=== PATIENT | male | born 1960 | race Caucasian/White ===

== ENCOUNTER 2019-08-17 19:48 | Emergency (ER) | payer MEDICARE, MEDICAID, SELFPAY ==
[2019-08-17 20:02] VITALS: BP 121/76; PULSE 64; RESP 18; TEMP 36.9; O2SAT 95; BMI 24.3
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
[2019-08-17 21:07] VITALS: RESP 18
[2019-08-17] MEDS: oxyCODONE-APAP 5-325 mg Tablet 2 TAB PO (21:07)
[2019-08-17 21:21] VITALS: BP 127/74; PULSE 76; RESP 18
== END 2019-08-17 21:22 | disposition home or self-care (01) ==
PROVIDERS: Emergency Provider Emergency Medicine
DX: S50.11XA Contusion of right forearm, initial encounter (principal); F17.210 Nicotine dependence, cigarettes, uncomplicated; W55.22XA Struck by cow, initial encounter
CPT/HCPCS: 12345; 73090; 99281; 99283

== ENCOUNTER 2020-08-08 19:11 | Emergency (ER) | payer MEDICARE, MEDICAID, SELFPAY ==
[2020-08-08 19:34] VITALS: BP 130/68; PULSE 80; RESP 18; TEMP 36.3; O2SAT 98; BMI 25.0
--- NOTE | 2020-08-08 19:37 | W.ED.ABDPA2 ---
HPI - Abdominal Pain General: Chief Complaint: Abdominal Pain Stated Complaint: ABD PAIN Time Seen by Provider: 08/08/20 19:36 History of Present Illness: HPI narrative: Patient comes in with right upper quadrant abdominal pain. Patient reports tender to palpation. Patient states that he had a similar discomfort about 1 week ago that resolved on its own. Patient reports nothing makes pain better movement makes it worse. Patient does have a history of chronic back pain. Patient reports no routine medications. Patient denies any heart or lung disease. Onset (ago): hour(s) Pain Consistency: constant Location: RUQ Severity: moderate Quality: stabbing Radiation: none Migration to: no migration Exacerbating factors: movement Relieving factors: nothing Associated Symptoms: Reports no associated symptoms Review of Systems General: Reports: 10 or more systems reviewed and unremarkable except in HPI and below GI: Reports: abdominal pain PFSH ED PFSH: Social History Smoking and tobacco status: current every day smoker Physical Exam Const: COMMON NORMALS: no acute distress and patient oriented x3 GENERAL APPEARANCE: cooperative HENMT: COMMON NORMALS: normocephalic and Normal external nose present HEAD & SCALP: normal to inspection and normocephalic NOSE: Normal external nose present MOUTH: Normal oral and palatal mucosa present Eye: GENERAL EYE: appearance normal, both eyes and all related structures Neck/C-Spine: COMMON NORMALS: full ROM Lymph: LYMPHATIC: no lymphadenopathy noted Chest: COMMONS NORMALS: normal inspection of the chest Resp: COMMON NORMALS: normal respiratory effort EFFORT & INSPECTION: Yes able to speak in complete sentences Cardio: COMMON NORMALS: regular rate and regular rhythm RATE: regular rate RHYTHM: regular rhythm GI: COMMON NORMALS: Soft to palpation INSPECTION: Yes normal to inspection AUSCULTATION: Yes normoactive bowel sounds PALPATION: Yes Soft to palpation and Yes Tenderness to palpation present (GI) Details: RUQ : COMMON NORMALS: Yes no CVA tenderness BLADDER/KIDNEY EXAM: Yes no CVA tenderness Back/Pelvis: COMMON NORMALS: no CVA tenderness and thoracic and lumbar spine normal to inspection Extremity: COMMON NORMALS: normal to inspection Neuro: COMMON NORMALS: patient oriented x3 and moves all extremities Psych: COMMON NORMALS: mental status grossly normal and cooperative Skin: COMMON NORMALS: no rashes or lesions noted GENERAL SKIN EXAM: no rashes or lesions noted Course Vital Signs: Vital signs: Vital Signs Temperature 97.4 F L 08/08/20 19:34 Pulse Rate 80 08/08/20 19:34 Respiratory Rate 16 08/08/20 20:04 Blood Pressure 130/68 08/08/20 19:34 Pulse Oximetry 98 08/08/20 19:34 MDM - Abdominal Pain MDM Narrative: Medical decision making narrative: pt comes in for epigastric abd pain starting 2 hours prior to arrival. patient appears well but in moderate pain. Abd is tender to touch to right upper quadrant. vital signs normal. ddx includes gastritis, pancreatitis, gallbladder disease. lab unremarkable except mild bump in lipase at 70. Ct abd and pelvis no acute disease. reviewed exam with patient, much improved after morphine and ondansetron, recommend dicyclomine to treat bowel pain, and f/u with primary care for further treatment. Lab Data: Labs: Lab Results 08/08/20 08/08/20 Range/Units 20:03 20:03 WBC 7.2 (4.0-10.0) 10^3/ uL RBC 4.99 (4.1-5.3) 10^6/u L Hgb 15.2 (11.7-16.6) g/dL Hct 44.5 (42.0-52.0) % MCV 89.2 (80-94) fL MCH 30.5 (28.0-34.0) pg MCHC 34.2 (30.0-36.0) g/dL RDW 12.1 (12.1-15.1) % Plt Count 232 (130-400) 10^3/c mm MPV 8.4 (7.4-10.4) fL Neut % (Auto) 52.5 % Lymph % (Auto) 35.6 % [place] % (Auto) 8.0 % Eos % (Auto) 3.2 % Baso % (Auto) 0.6 % Neut # (Auto) 3.78 (1.8-7.7) 10^3/u L Lymph # (Auto) 2.6 (0.8-4.8) 10^3/u L [place] # (Auto) 0.6 (0.2-0.9) 10^3/u L Eos # (Auto) 0.2 (0.0-0.8) 10^3/u L Baso # (Auto) 0.0 (0.0-0.1) 10^3/u L Nucleated RBC % (a uto) 0 % Nucleated RBCs # 0.0 /100WBC Sodium 138 (136-145) mmol/L Potassium 3.5 (3.5-5.1) mmol/L Chloride 104 (98-107) mmol/L Carbon Dioxide 25 (22-29) mmol/L Anion Gap 12.5 (5-19) BUN 20 (6-20) mg/dL Creatinine 0.7 (0.7-1.2) mg/dL GFR Calculation 116.2 (90-130) mL/min Glucose 103 (65-115) mg/dL Calculated Osmolal ity 289 (285-295) mOsm/k g Calcium 8.3 L (8.5-10.5) mg/dL Total Bilirubin 0.4 (0.15-1.2) mg/dL AST 12 (0-40) U/L ALT 10 (0-41) U/L Alkaline Phosphata se 112 (40-130) IU/L Total Protein 6.0 L (6.6-8.7) g/dL Albumin 3.4 L (3.5-5.2) g/dL Globulin 2.6 (1.3-4.6) g/dL Lipase 74 H (13-60) U/L Discharge Plan Discharge Patient Disposition: Home Clinical Impression: Abdominal pain Qualifiers: Abdominal location: epigastric Qualified Code(s): R10.13 - Epigastric pain Condition: Stable Prescriptions: New dicyclomine 10 mg capsule 10 mg PO TID PRN (Reason: abdominal pain) Qty: 15 RF: 0 No Action ropinirole 0.25 mg tablet RF: 0 [place] 5-325 mg tablet 1 tab PO Q6H PRN (Reason: pain) Qty: 7 RF: 0 Discharge Orders: Discharge ED (Routine); Ordered 08/08/20 Ordered By: Isaak Frazier Referrals: [facility], [Primary Care Provider] - Discharge Diet: Advance as tolerated Discharge Activity: Increase activity as tolerated Patient Instructions: Abdominal Pain (ED), Opioid Safety Activity Restrictions/Additional Instructions: Drink plenty of water, activity as tolerated. Follow-up with primary care as needed. Start with clear liquid diet and increase to normal diet as tolerated. Return to ER as needed Stand Alone Forms: Work/School Release Coding Level of Care Code ED Space Systems Operations Craftsman for Chg Fwd Exam Comprehensive
--- NOTE | 2020-08-08 19:40 | CTR_ITS ---
PROCEDURE INFORMATION: Exam: CT Abdomen And Pelvis With Contrast Exam date and time: 08/08/2020 7:40 PM Age: 59 years old Clinical indication: Abdominal pain; Localized; Right upper quadrant (ruq); Prior surgery; Surgery date: 6+ months; Surgery type: Appy; Patient HX: C/O ruq abd pain x 1 week; Additional info: Ruq pain, nausea TECHNIQUE: Imaging protocol: Computed tomography of the abdomen and pelvis with contrast. Radiation optimization: All CT scans at this facility use at least one of these dose optimization techniques: automated exposure control; mA and/or kV adjustment per patient size (includes targeted exams where dose is matched to clinical indication); or iterative reconstruction. Contrast material: OMNI 300; Contrast volume: 95 ml; Contrast route: INTRAVENOUS (IV); COMPARISON: No relevant prior studies available. RADIATION DOSE METRICS: Total DLP (mGy-cm): 1235.74 FINDINGS: Lungs: Minimal patchy bibasilar atelectasis and emphysematous changes suspected. Liver: Indeterminate 12 mm hypodense lesion in the right hepatic lobe. Nonemergent MRI may be helpful further evaluation. Gallbladder and bile ducts: No calcified stones. No ductal dilation. Pancreas: No ductal dilation. Spleen: No splenomegaly. Adrenal glands: Normal. No mass. Kidneys and ureters: No hydronephrosis. Stomach and bowel: Colonic diverticulosis without findings of diverticulitis. No dilated bowel loops. No bowel obstruction. Appendix: Status post appendectomy. Intraperitoneal space: No free air. No significant fluid collection. Vasculature: Mild atherosclerotic changes of the aorta. No aneurysm. Lymph nodes: No enlarged lymph nodes. Urinary bladder: Unremarkable as visualized. Reproductive: Unremarkable as visualized. Bones/joints: Unremarkable. No acute fracture. Soft tissues: Unremarkable. CT/CT abdomen pelvis w con* [id number] IMPRESSION: 1. No acute findings. 2. Indeterminate 12 mm hypodense lesion in the right hepatic lobe. Nonemergent MRI may be helpful further evaluation. Radiation Dose CTDIVOL = (mGy): DLP = 1235.74 (mGy-cm)
[2020-08-08 20:04] VITALS: RESP 16
[2020-08-08] MEDS: ondansetron 2 mg/ML SDV 2 mL 4 MG IVP (20:04)
[2020-08-08] MEDS: sodium chloride 0.9% 1,000 ML 999 ML IV (20:04)
[2020-08-08] MEDS: morphine 4 mg/mL SDV 1 mL IVP (20:04)
[2020-08-08 20:10] LABS: Basophils % 0.6 %; Eosinophils # 0.2 10^3/uL (0.0-0.8); Eosinophils % 3.2 %; Hematocrit 44.5 % (42.0-52.0); Hemoglobin 15.2 g/dL (11.7-16.6); Lymphocytes # 2.6 10^3/uL (0.8-4.8); Lymphocytes % 35.6 %; Mean Corpuscular HGB Conc 34.2 g/dL (30.0-36.0); Mean Corpuscular Hemoglobin 30.5 pg (28.0-34.0); Mean Corpuscular Volume 89.2 fL (80-94); Mean Platelet Volume 8.4 fL (7.4-10.4); Monocytes # 0.6 10^3/uL (0.2-0.9); Neutrophils # 3.78 10^3/uL (1.8-7.7); Neutrophils % 52.5 %; Nucleated Red Blood Cells % 0 %; Platelet Count 232 10^3/cmm (130-400); Red Blood Count 4.99 10^6/uL (4.1-5.3); Red Cell Distribution Width 12.1 % (12.1-15.1); White Blood Count 7.2 10^3/uL (4.0-10.0)
[2020-08-08 20:28] LABS: Alanine Aminotransferase 10 U/L (0-41); Albumin Level 3.4 g/dL (3.5-5.2); Alkaline Phosphatase 112 IU/L (40-130); Anion Gap 12.5 (5-19); Aspartate Amino Transferase 12 U/L (0-40); Blood Urea Nitrogen 20 mg/dL (6-20); Calcium 8.3 mg/dL (8.5-10.5); Carbon Dioxide 25 mmol/L (22-29); Chloride 104 mmol/L (98-107); Creatinine Clr Calc Pharmacy 113.1204; Globulin 2.6 g/dL (1.3-4.6); Glomerular Filtration Rate 116.2 mL/min (90-130); Glucose 103 mg/dL (65-115); Lipase 74 U/L (13-60); Osmolality Calculated 289 mOsm/kg (285-295); Potassium 3.5 mmol/L (3.5-5.1); Sodium 138 mmol/L (136-145); Total Bilirubin 0.4 mg/dL (0.15-1.2)
[2020-08-08] MEDS: iohexol 300 mg/mL 100 mL Btl IV (20:59)
[2020-08-08 22:42] VITALS: PULSE 77; RESP 16; O2SAT 98
== END 2020-08-08 22:42 | disposition home or self-care (01) ==
PROVIDERS: Emergency Medicine; Emergency Provider Nurse Practitioner Family
DX: R10.13 Epigastric pain (principal); F17.210 Nicotine dependence, cigarettes, uncomplicated
CPT/HCPCS: 74177; 80053; 83690; 85025; 96361; 96374; 96375; 99283; J2270; J2405; J7030; Q9967

== ENCOUNTER 2022-05-04 22:53 | Emergency (ER) | payer MEDICARE, MEDICAID, SELFPAY ==
--- NOTE | 2022-05-04 22:54 | USR_ITS ---
PROCEDURE INFORMATION: Exam: US Abdomen, Limited; Right Upper Quadrant Exam date and time: 05/04/2022 11:05 PM Age: 61 years old Clinical indication: Abdominal pain; Acute; Patient HX: Ruq pain today TECHNIQUE: Imaging protocol: Real time ultrasound of the abdomen with image documentation. Limited exam focused on the right upper quadrant. COMPARISON: CT abdomen pelvis w con* [id number] 08/08/2020 8:55 PM FINDINGS: Liver: Right hepatic lobe 15 mm hyperechoic possible hemangioma, finding was previously seen on CT from 08/08/2020 for which an MRI was recommended. Gallbladder: Normal. No gallstones. There is no gallbladder wall thickening. Biliary ducts: Normal. No stones. No dilation. Pancreas: Visualized pancreas is unremarkable. Right kidney: Normal. No mass. No hydronephrosis. US/US gall bladder [id number] IMPRESSION: 1. Negative for cholelithiasis or cholecystitis. 2. Right hepatic lobe 15 mm hyperechoic possible hemangioma, finding was previously seen on CT from 08/08/2020 for which an MRI was recommended.
[2022-05-04 22:58] VITALS: BP 143/101; PULSE 96; RESP 20; TEMP 36.7; O2SAT 98; BMI 27.6
--- NOTE | 2022-05-04 23:57 | ED_ITS ---
HPI - Abdominal Pain General: Chief Complaint: Abdominal Pain Stated Complaint: RUQ abd pain Time Seen by Provider: 05/04/22 22:55 Source: patient Mode of arrival: ambulatory Limitations: no limitations History of Present Illness: 61-year-old male states he has had intermittent abdominal pain for years is in the right upper quadrant he states that last night he is having severe pain is 8 out of 10 he states site is improved to 2 out of 10 but states he still had some pain he is currently incarcerated he is here with the Jell-O. He denies any vomiting denies any fever denies any worsening proving factors. Associated Symptoms: Denies chills, dysuria and fever(s) Review of Systems Const: Denies: fever(s), chills, body aches or change in appetite Eyes: Denies: blurry vision or eye discomfort ENMT: Denies: throat pain or dental pain Card: Denies: chest pain Resp: Denies: dyspnea GI: Reports: abdominal pain : Denies: dysuria Musc: Denies: neck pain or back pain Skin/Breast: Denies: rash Neuro: Denies: headache(s) Psych: Denies: depression [place]/Lymph: Denies: easy bruising All/Imm: Denies: urticaria PFSH ED PFSH: Medical History (Updated 05/05/22 @ 00:36 by Berry Solis MD) No pertinent past medical history Social History Smoking and tobacco status: current every day smoker Physical Exam Const: COMMON NORMALS: no acute distress, patient oriented x3 and healthy appearing HENMT: COMMON NORMALS: normocephalic and atraumatic HEAD & SCALP: normocephalic and atraumatic Eye: COMMON NORMALS: Equal, round and reactive pupils present and EOMs intact bilaterally PUPIL: Yes Equal, round and reactive pupils present Neck/C-Spine: COMMON NORMALS: full ROM and supple Chest: COMMONS NORMALS: normal inspection of the chest and normal palpation of entire chest wall Resp: COMMON NORMALS: normal respiratory effort, No retractions, No use of accessory muscles and clear to auscultation bilaterally AUSCULTATION: clear to auscultation bilaterally Cardio: COMMON NORMALS: regular rate, regular rhythm and No murmurs present (Cardio) RATE: regular rate RHYTHM: regular rhythm GI: COMMON NORMALS: Normal to inspection, nondistended, normoactive bowel sounds present, Soft to palpation, non-tender and no masses PALPATION: Yes Soft to palpation Extremity: COMMON NORMALS: normal to inspection and full ROM Neuro: COMMON NORMALS: patient oriented x3, moves all extremities and no focal motor deficits Psych: COMMON NORMALS: mental status grossly normal, Normal thought process present and cooperative THOUGHT PROCESS: Normal thought process present Skin: COMMON NORMALS: no rashes or lesions noted and no wounds GENERAL SKIN EXAM: no rashes or lesions noted Course Vital Signs: Vital signs: Vital Signs Temperature 98.1 F 05/04/22 22:58 Pulse Rate 96 05/04/22 22:58 Respiratory Rate 20 H 05/04/22 22:58 Blood Pressure 143/101 05/04/22 22:58 Pulse Oximetry 98 05/04/22 22:58 MDM - Abdominal Pain Medical Decision Making Patient presents here with abdominal pain his exam here is benign he is currently pain-free ultrasound blood works normal he stable for discharge back to senior living we will prescribe him Protonix he is to follow-up with his PCP and return if worsening. Lab Data 05/05/22 00:06 05/05/22 00:06 Labs/Radiology: Radiology Impressions Gallbladder Ultrasound 05/04/22 22:54 IMPRESSION: 1. Negative for cholelithiasis or cholecystitis. 2. Right hepatic lobe 15 mm hyperechoic possible hemangioma, finding was previously seen on CT from 08/08/2020 for which an MRI was recommended. Laboratory Results WBC 7.7 10^3/uL (4.0-10.0) 05/05/22 00:06 RBC 4.86 10^6/uL (4.1-5.3) 05/05/22 00:06 Hgb 14.7 g/dL (11.7-16.6) 05/05/22 00:06 Hct 42.8 % (42.0-52.0) 05/05/22 00:06 MCV 88.1 fl (80-94) 05/05/22 00:06 MCH 30.2 pg (28.0-34.0) 05/05/22 00:06 MCHC 34.3 g/dL (30.0-36.0) 05/05/22 00:06 RDW 13.0 % (12.1-15.1) 05/05/22 00:06 Plt Count 281 10^3/cmm (130-400) 05/05/22 00:06 MPV 8.3 fL (7.4-10.4) 05/05/22 00:06 Neut % (Auto) 49.4 % 05/05/22 00:06 Lymph % (Auto) 38.9 % 05/05/22 00:06 [place] % (Auto) 9.0 % 05/05/22 00:06 Eos % (Auto) 1.7 % 05/05/22 00:06 Baso % (Auto) 0.7 % 05/05/22 00:06 Neut # (Auto) 3.80 10^3/uL (1.8-7.7) 05/05/22 00:06 Lymph # (Auto) 3.0 10^3/uL (0.8-4.8) 05/05/22 00:06 [place] # (Auto) 0.7 10^3/uL (0.2-0.9) 05/05/22 00:06 Eos # (Auto) 0.1 10^3/uL (0.0-0.8) 05/05/22 00:06 Baso # (Auto) 0.1 10^3/uL (0.0-0.1) 05/05/22 00:06 Nucleated RBC % (auto) 0 % 05/05/22 00:06 Nucleated RBCs # 0.0 /100WBC 05/05/22 00:06 Sodium 139 mmol/L (136-145) 05/05/22 00:06 Potassium 3.7 mmol/L (3.5-5.1) 05/05/22 00:06 Chloride 105 mmol/L (98-107) 05/05/22 00:06 Carbon Dioxide 24 mmol/L (22-29) 05/05/22 00:06 Anion Gap 13.7 (5-19) 05/05/22 00:06 BUN 12 mg/dL (6-20) 05/05/22 00:06 Creatinine 0.7 mg/dL (0.7-1.2) 05/05/22 00:06 GFR Calculation 115.4 mL/min (90-130) 05/05/22 00:06 Glucose 109 mg/dL (65-115) 05/05/22 00:06 Calculated Osmolality 288 mOsm/kg (285-295) 05/05/22 00:06 Calcium 8.7 mg/dL (8.5-10.5) 05/05/22 00:06 Total Bilirubin 0.4 mg/dL (0.15-1.2) 05/05/22 00:06 ALT 27 U/L (0-41) 05/05/22 00:06 Alkaline Phosphatase 126 U/L (40-130) 05/05/22 00:06 Total Protein 6.9 g/dL (6.6-8.7) 05/05/22 00:06 Albumin 3.8 g/dL (3.5-5.2) 05/05/22 00:06 Globulin 3.1 g/dL (1.3-4.6) 05/05/22 00:06 Lipase 20 U/L (13-60) 05/05/22 00:06 Discharge Plan Discharge Patient Disposition: Home Clinical Impression: Abdominal pain Condition: Stable Prescriptions: New Protonix 40 mg tablet,delayed release (DR/EC) 40 mg PO DAILY Qty: 60 0RF No Action ropinirole 0.25 mg tablet [place] 5-325 mg tablet 1 tab PO Q6H PRN (Reason: pain) Qty: 7 0RF dicyclomine 10 mg capsule 10 mg PO TID PRN (Reason: abdominal pain) Qty: 15 0RF Discharge Orders: Discharge ED (Routine); Ordered 05/05/22 Ordered By: Berry Solis Referrals: Rossi Henry FNP [Primary Care Provider] - 1-3 days Discharge Diet: Advance as tolerated Discharge Activity: Resume usual activity Patient Instructions: Abdominal Pain (ED) Coding Level of Care Code ED Solar Sales Representative And Assessor for Yisel White
[2022-05-05 00:12] LABS: Basophils # 0.1 10^3/uL (0.0-0.1); Basophils % 0.7 %; Eosinophils # 0.1 10^3/uL (0.0-0.8); Eosinophils % 1.7 %; Hematocrit 42.8 % (42.0-52.0); Hemoglobin 14.7 g/dL (11.7-16.6); Lymphocytes % 38.9 %; Mean Corpuscular HGB Conc 34.3 g/dL (30.0-36.0); Mean Corpuscular Hemoglobin 30.2 pg (28.0-34.0); Mean Corpuscular Volume 88.1 fl (80-94); Mean Platelet Volume 8.3 fL (7.4-10.4); Monocytes # 0.7 10^3/uL (0.2-0.9); Neutrophils % 49.4 %; Nucleated Red Blood Cells % 0 %; Platelet Count 281 10^3/cmm (130-400); Red Blood Count 4.86 10^6/uL (4.1-5.3); White Blood Count 7.7 10^3/uL (4.0-10.0)
[2022-05-05 00:32] LABS: Alanine Aminotransferase 27 U/L (0-41); Albumin Level 3.8 g/dL (3.5-5.2); Alkaline Phosphatase 126 U/L (40-130); Anion Gap 13.7 (5-19); Blood Urea Nitrogen 12 mg/dL (6-20); Calcium 8.7 mg/dL (8.5-10.5); Carbon Dioxide 24 mmol/L (22-29); Chloride 105 mmol/L (98-107); Globulin 3.1 g/dL (1.3-4.6); Glomerular Filtration Rate 115.4 mL/min (90-130); Glucose 109 mg/dL (65-115); Lipase 20 U/L (13-60); Osmolality Calculated 288 mOsm/kg (285-295); Potassium 3.7 mmol/L (3.5-5.1); Sodium 139 mmol/L (136-145); Total Bilirubin 0.4 mg/dL (0.15-1.2); Total Protein 6.9 g/dL (6.6-8.7)
[2022-05-05 00:42] LABS: Aspartate Amino Transferase 5 U/L (0-40)
== END 2022-05-05 00:46 | disposition home or self-care (01) ==
PROVIDERS: Emergency Provider Emergency Medicine; PCP Nurse Practitioner
DX: R10.11 Right upper quadrant pain (principal); F17.210 Nicotine dependence, cigarettes, uncomplicated
CPT/HCPCS: 76705; 80053; 83690; 85025; 99284

== ENCOUNTER 2022-11-08 20:25 | Emergency (ER) | payer MEDICARE, MEDICAID, SELFPAY ==
[2022-11-08 20:48] VITALS: BP 117/82; PULSE 97; RESP 18; TEMP 36.7; O2SAT 97; BMI 28.3
--- NOTE | 2022-11-08 21:05 | ED_ITS ---
HPI - Abdominal Pain General: Chief Complaint: Abdominal Pain Stated Complaint: upper abdomin pain Time Seen by Provider: 11/08/22 21:00 History of Present Illness: 62-year-old male patient comes in today with complaints of epigastric pain. Patient reports an hour before he was going to eat he started having some discomfort in the mid epigastric region of his abdomen. Patient appears nontoxic. Patient appears in mild to moderate pain. Patient has had as he reports 3 similar episodes. Patient has been seen here twice for those episodes. Both times he is checked out without any significant illnesses. Last time patient been put on some pantoprazole to treat for a gastritis. Patient reports taking 1 stomach pill prior to coming into the ER. Patient is a daily cigarette smoker. Patient denies any other drugs or alcohol. Associated Symptoms: Denies constipation, diarrhea, fever(s), nausea and vomiting Review of Systems Const: Denies: fever(s) Card: Denies: chest pain Resp: Denies: dyspnea GI: Reports: abdominal pain; Denies: nausea, vomiting, diarrhea or constipation : Denies: difficulty urinating [facility] ED PFSH: Medical History (Updated 11/08/22 @ 22:50 by HAYDEN Wiley) No pertinent past medical history Social History Smoking and tobacco status: current every day smoker Physical Exam Const: COMMON NORMALS: alert HENMT: COMMON NORMALS: normocephalic HEAD & SCALP: normocephalic Neck/C-Spine: COMMON NORMALS: full ROM Chest: COMMONS NORMALS: normal palpation of entire chest wall Resp: COMMON NORMALS: normal respiratory effort and clear to auscultation bilaterally AUSCULTATION: clear to auscultation bilaterally Cardio: COMMON NORMALS: regular rate and regular rhythm RATE: regular rate RHYTHM: regular rhythm GI: INSPECTION: Yes normal to inspection PALPATION: Yes Tenderness to palpation present (GI) (Midepigastric tenderness) : COMMON NORMALS: Yes no CVA tenderness BLADDER/KIDNEY EXAM: Yes no CVA tenderness Back/Pelvis: COMMON NORMALS: no CVA tenderness and thoracic and lumbar spine normal to inspection Extremity: COMMON NORMALS: normal to inspection Neuro: SENSORIUM/ORIENTATION: Yes alert Skin: COMMON NORMALS: turgor normal GENERAL SKIN EXAM: turgor normal Course Vital Signs: Vital signs: Vital Signs Temperature 98.1 F 11/08/22 20:48 Pulse Rate 97 11/08/22 20:48 Respiratory Rate 16 11/08/22 22:07 Blood Pressure 117/82 11/08/22 20:48 Pulse Oximetry 97 11/08/22 20:48 Oxygen Delivery Me thod Room Air 11/08/22 20:48 MDM - Abdominal Pain Medical Decision Making 62-year-old male patient comes in with mid epigastric abdominal pain. On exam patient had tenderness in the midepigastric region. Lungs were clear to auscultation. Skin was warm and dry. Vital signs were normal. Differential diagnosis includes but not limited to pancreatitis, gastroenteritis, gastritis, gallbladder disease, colitis, renal calculi. Patient was given a GI cocktail with no relief of pain or discomfort. Labs noted some elevation in creatinine at 1.3 and a potassium of 3.4. Patient was given 1 L of IV fluids for mild dehydration, morphine 4 mg for pain, and Zofran [address] of the abdomen pelvis showed no acute inflammatory process in the abdomen or pelvis. Patient had no signs of surgical abdomen. Patient relief of pain and discomfort after fluids and medications. Patient was discharged home with medication for gastritis and recommended to follow-up with primary care for referral for EGD. Lab Data 11/08/22 21:13 11/08/22 21:13 Labs/Radiology: Radiology Impressions Abdomen/Pelvis CT 11/08/22 21:57 IMPRESSION: 1. Negative for acute inflammatory process in the abdomen or pelvis. 2. Emphysematous changes. 3. Bibasilar atelectasis. 4. Coronary artery atherosclerotic calcifications. 5. Diverticulosis without diverticulitis. 6. Bilateral fat containing inguinal hernias without bowel or inflammation. 7. Small bilateral fat containing inguinal hernias without bowel or inflammation. 8. Left posterior iliac sclerotic bony lesions measuring up to 4.6 mm the, similar to prior exam, nonaggressive and likely benign given stability. Laboratory Results WBC 10.13 10^3/uL (3.29-11.43) 11/08/22 21:13 RBC 5.27 10^6/uL (3.85-5.65) 11/08/22 21:13 Hgb 16.40 g/dL (11.27-16.99) 11/08/22 21:13 Hct 46.6 % (37-53) 11/08/22 21:13 MCV 88.4 fl (82-101) 11/08/22 21:13 MCH 31.1 pg (27-33) 11/08/22 21:13 MCHC 35.2 g/dL (30-55) 11/08/22 21:13 RDW 13.2 % (12.1-15.1) 11/08/22 21:13 Plt Count 306 10^3/cmm (157-399) 11/08/22 21:13 MPV 8.5 fL (7.4-10.4) 11/08/22 21:13 Neut % (Auto) 57.8 % 11/08/22 21:13 Lymph % (Auto) 29.5 % 11/08/22 21:13 [place] % (Auto) 12.0 % 11/08/22 21:13 Eos % (Auto) 0.1 % 11/08/22 21:13 Baso % (Auto) 0.4 % 11/08/22 21:13 Neut # (Auto) 5.85 10^3/uL (1.8-7.7) 11/08/22 21:13 Lymph # (Auto) 3.0 10^3/uL (0.8-4.8) 11/08/22 21:13 [place] # (Auto) 1.2 10^3/uL (0.2-0.9) H 11/08/22 21:13 Eos # (Auto) 0.0 10^3/uL (0.0-0.8) 11/08/22 21:13 Baso # (Auto) 0.0 10^3/uL (0.0-0.1) 11/08/22 21:13 Nucleated RBC % (auto) 0 % 11/08/22 21:13 Nucleated RBCs # 0.0 /100WBC 11/08/22 21:13 Sodium 138 mmol/L (136-145) 11/08/22 21:13 Potassium 3.4 mmol/L (3.5-5.1) L 11/08/22 21:13 Chloride 102 mmol/L (98-107) 11/08/22 21:13 Carbon Dioxide 24 mmol/L (22-29) 11/08/22 21:13 Anion Gap 15.4 (5-19) 11/08/22 21:13 BUN 36 mg/dL (8-23) H 11/08/22 21:13 Creatinine 1.3 mg/dL (0.7-1.2) H 11/08/22 21:13 GFR Calculation 56.3 mL/min (90-130) L 11/08/22 21:13 Glucose 94 mg/dL (65-115) 11/08/22 21:13 Calculated Osmolality 294 mOsm/kg (285-295) 11/08/22 21:13 Calcium 9.6 mg/dL (8.5-10.5) 11/08/22 21:13 Total Bilirubin 0.7 mg/dL (0.15-1.2) 11/08/22 21:13 AST 24 U/L (0-40) 11/08/22 21:13 ALT 14 U/L (0-41) 11/08/22 21:13 Alkaline Phosphatase 127 U/L (40-130) 11/08/22 21:13 Total Protein 7.9 g/dL (6.6-8.7) 11/08/22 21:13 Albumin 4.7 g/dL (3.5-5.2) 11/08/22 21:13 Globulin 3.2 g/dL (1.3-4.6) 11/08/22 21:13 Lipase 21 U/L (13-60) 11/08/22 21:13 Urine Color Yellow (Yellow) 11/08/22 22:00 Urine Appearance Clear (CLEAR) 11/08/22 22:00 Urine pH 5 (5-7) 11/08/22 22:00 Ur Specific [place] 1.020 (1.005-1.030) 11/08/22 22:00 Urine Protein Neg (Negative) 11/08/22 22:00 Urine Glucose (UA) Norm (Normal) 11/08/22 22:00 Urine Ketones 1+ (Negative) H 11/08/22 22:00 Urine Blood Neg (Negative) 11/08/22 22:00 Urine Nitrate Negative (Negative) 11/08/22 22:00 Urine Bilirubin Neg (Negative) 11/08/22 22:00 Urine Urobilinogen Neg mg/dL (Negative) 11/08/22 22:00 Ur Leukocyte Esterase Negative (Negative) 11/08/22 22:00 Discharge Plan Discharge Patient Disposition: Home Clinical Impression: Gastritis and duodenitis Condition: Stable Prescriptions: New hydrocodone-acetaminophen 5-325 mg tablet 1 tab PO BID PRN (Reason: pain (scale score 7-10)) Qty: 6 0RF Continued Protonix 40 mg tablet,delayed release (DR/EC) 40 mg PO DAILY Qty: 30 0RF No Action ropinirole 0.25 mg tablet [place] 5-325 mg tablet 1 tab PO Q6H PRN (Reason: pain) Qty: 7 0RF dicyclomine 10 mg capsule 10 mg PO TID PRN (Reason: abdominal pain) Qty: 15 0RF Discharge Orders: Discharge ED (Routine); Ordered 11/08/22 Ordered By: Isaak Frazier Referrals: Rossi Henry FNP [Primary Care Provider] - Discharge Diet: Usual diet Discharge Activity: Increase activity as tolerated Patient Instructions: Gastritis (ED) Activity Restrictions/Additional Instructions: Use pantoprazole 40 mg 1 capsule daily 30 minutes before your first meal of the day. Use hydrocodone as needed for severe pain. Use acetaminophen otherwise for pain. Follow-up with primary care in 1 week for recheck. You may need to have further evaluation with a EGD, endoscopy study for further evaluation of the gastritis. Return to ER for new concerns. Coding Level of Care Code ED Reliability Specialist for Yisel White
[2022-11-08 21:25] LABS: Basophils % 0.4 %; Eosinophils % 0.1 %; Hematocrit 46.6 % (37-53); Lymphocytes % 29.5 %; Mean Corpuscular HGB Conc 35.2 g/dL (30-55); Mean Corpuscular Hemoglobin 31.1 pg (27-33); Mean Corpuscular Volume 88.4 fl (82-101); Mean Platelet Volume 8.5 fL (7.4-10.4); Monocytes # 1.2 10^3/uL (0.2-0.9); Neutrophils # 5.85 10^3/uL (1.8-7.7); Neutrophils % 57.8 %; Nucleated Red Blood Cells % 0 %; Platelet Count 306 10^3/cmm (157-399); Red Blood Count 5.27 10^6/uL (3.85-5.65); Red Cell Distribution Width 13.2 % (12.1-15.1); White Blood Count 10.13 10^3/uL (3.29-11.43)
[2022-11-08] MEDS: lidocaine 2% viscous 15 ML, aluminum-mag hydrox-simethicon 30 ML, sucralfate oral liq 1 GM PO (21:28)
[2022-11-08 21:49] LABS: Alanine Aminotransferase 14 U/L (0-41); Albumin Level 4.7 g/dL (3.5-5.2); Alkaline Phosphatase 127 U/L (40-130); Anion Gap 15.4 (5-19); Aspartate Amino Transferase 24 U/L (0-40); Blood Urea Nitrogen 36 mg/dL (8-23); Calcium 9.6 mg/dL (8.5-10.5); Carbon Dioxide 24 mmol/L (22-29); Chloride 102 mmol/L (98-107); Globulin 3.2 g/dL (1.3-4.6); Glomerular Filtration Rate 56.3 mL/min (90-130); Glucose 94 mg/dL (65-115); Lipase 21 U/L (13-60); Osmolality Calculated 294 mOsm/kg (285-295); Potassium 3.4 mmol/L (3.5-5.1); Sodium 138 mmol/L (136-145); Total Bilirubin 0.7 mg/dL (0.15-1.2); Total Protein 7.9 g/dL (6.6-8.7)
--- NOTE | 2022-11-08 21:57 | CTR_ITS ---
PROCEDURE INFORMATION: Exam: CT Abdomen And Pelvis Without Contrast Exam date and time: 11/08/2022 10:13 PM Age: 62 years old Clinical indication: Abdominal pain; Localized; Right upper quadrant (ruq); Patient HX: Ruq pain just under rib on and off for a year, HX of kidney stones; Additional info: Right flank pain TECHNIQUE: Imaging protocol: Computed tomography of the abdomen and pelvis without contrast. Radiation optimization: All CT scans at this facility use at least one of these dose optimization techniques: automated exposure control; mA and/or kV adjustment per patient size (includes targeted exams where dose is matched to clinical indication); or iterative reconstruction. REPORTING DATA: Count of CT and Cardiac NM exams in prior 12 months: This patient has received 0 known CTs and 0 known cardiac nuclear medicine studies in the 12 months prior to the current study. COMPARISON: CT abdomen pelvis w con* [id number] 08/08/2020 8:55 PM RADIATION DOSE METRICS: Total DLP (mGy-cm): 477.41 FINDINGS: Lungs: Emphysematous changes. Bibasilar atelectasis. Coronary arteries: Coronary artery atherosclerotic calcifications. Liver: Normal. No mass. Gallbladder and bile ducts: Normal. No calcified stones. No ductal dilation. Pancreas: Normal. No ductal dilation. Spleen: Normal. No splenomegaly. Adrenal glands: Normal. No mass. Kidneys and ureters: Normal. No hydronephrosis. Stomach and bowel: Diverticulosis without diverticulitis. Appendix: No evidence of appendicitis. Intraperitoneal space: Unremarkable. No free air. No significant fluid collection. Vasculature: Unremarkable. No abdominal aortic aneurysm. Lymph nodes: Unremarkable. No enlarged lymph nodes. Urinary bladder: Unremarkable as visualized. Reproductive: Unremarkable as visualized. Bones/joints: Left posterior iliac sclerotic bony lesions measuring up to 4.6 mm the, similar to prior exam, nonaggressive and likely benign given stability. Soft tissues: Bilateral fat containing inguinal hernias without bowel or inflammation. Small bilateral fat containing inguinal hernias without bowel or inflammation. CT/CT kidney stone [id number] IMPRESSION: 1. Negative for acute inflammatory process in the abdomen or pelvis. 2. Emphysematous changes. 3. Bibasilar atelectasis. 4. Coronary artery atherosclerotic calcifications. 5. Diverticulosis without diverticulitis. 6. Bilateral fat containing inguinal hernias without bowel or inflammation. 7. Small bilateral fat containing inguinal hernias without bowel or inflammation. 8. Left posterior iliac sclerotic bony lesions measuring up to 4.6 mm the, similar to prior exam, nonaggressive and likely benign given stability.
[2022-11-08 22:04] LABS: Add Urine Microscopic? NO; Charge for UA Resulting for Rev
[2022-11-08 22:05] LABS: Blood Urine Neg (Negative); Glucose Urine UA Norm (Normal); Ketones Urine 1+ (Negative); Nitrate Urine Negative (Negative); Protein Urine Neg (Negative); Urine Appearance Clear (CLEAR); Urine Color Yellow (Yellow); pH Urine 5 (5-7)
[2022-11-08] MEDS: ondansetron 2 mg/ML SDV 2 mL 4 MG IVP (22:05)
[2022-11-08 22:06] LABS: Bilirubin Urine Neg (Negative); Leukocyte Esterase Urine Negative (Negative); Urobilinogen Urine Neg (Negative)
[2022-11-08 22:07] VITALS: RESP 16
[2022-11-08] MEDS: sodium chloride 0.9% 1,000 ML 999 ML IV (22:07)
[2022-11-08] MEDS: morphine 4 mg/mL SDV 1 mL IVP (22:07)
== END 2022-11-08 22:57 | disposition home or self-care (01) ==
PROVIDERS: Emergency Provider Nurse Practitioner Family; PCP Nurse Practitioner
DX: K29.70 Gastritis, unspecified, without bleeding (principal); K29.80 Duodenitis without bleeding; I25.10 Atherosclerotic heart disease of native coronary artery without angina pectoris; K40.20 Bilateral inguinal hernia, without obstruction or gangrene, not specified as recurrent; K57.90 Diverticulosis of intestine, part unspecified, without perforation or abscess without bleeding; F17.210 Nicotine dependence, cigarettes, uncomplicated
CPT/HCPCS: 36415; 74176; 80053; 81003; 83690; 85025; 96361; 96374; 96375; 99285; J2270; J2405; J7030

== ENCOUNTER 2023-03-08 16:51 | Outpatient (CLI) | payer MEDICARE, MEDICAID, SELFPAY ==
--- NOTE | 2023-03-08 17:17 | CT_ITS ---
WS: [id number] LDCT LUNG CANCER SCREENING HISTORY: NICOTINE DEPENDENCE TECHNIQUE: Axial imaging performed from the apices to 1 cm below the costophrenic angles. Coronal and sagittal reformats are submitted with axial MIP series. All CT scans at [facility] use at least one of these dose optimization techniques: automated exposure control; mA and/or kV adjustment per patient size (includes targeted exams where dose is matched to clinical indication); or iterativ e reconstruction. DLP: 68.68 mGy.cm DIvol: Mean CTDIvol: 1.20 (mGy) COMPARISON: None available. Diagnostic quality: Satisfactory Lungs: Mild pulmonary hyperexpansion. Bilateral upper lobe 3 mm noncalcified pulmonary nodules. There is an additional subpleural granuloma LEFT upper lobe. Benign cyst near the lingula. No endobronchia l lesions. No mass. Heart: Normal size heart with no pericardial effusion.. Other findings: Mild atherosclerosis aorta. Benign-appearing mediastinal and hilar lymph nodes. Small hiatal hernia. No adrenal mass. Low-attenuation mass in the central RIGHT lobe of the liver. This co rresponds to a hemangioma described by ultrasound on 05/04/2022. Also noted on a CT from 08/08/2020. Due to long-term stability of the liver lesion this is probably benign. IMPRESSION: CT/CT lung screening [id number] LUNG-RADS: 2-Benign Appearance or Behavior FOLLOW UP: 12 Month: Continue annual screening with LDCT OTHER FINDINGS (S MODIFIER): None.
== END 2023-03-08 16:52 | disposition home or self-care (01) ==
PROVIDERS: PCP Nurse Practitioner; Visit Provider Family Medicine
DX: Z12.2 Encounter for screening for malignant neoplasm of respiratory organs (principal); F17.210 Nicotine dependence, cigarettes, uncomplicated
CPT/HCPCS: 71271